=== PATIENT | female | born 1955 | race Caucasian/White ===

== ENCOUNTER 2017-03-31 09:57 | Observation (INO) | payer MEDICAID ==
[2017-03-31] MEDS ORDERED: HYDROmorphONE/DILAUDID 1 MG/ML INJ ONE (10:51)
--- NOTE | 2017-03-31 10:53 | EDPHY ---
General - History Smoking Status: Never smoked Narrative: CHIEF COMPLAINT: Low back pain, right hip pain HISTORY OF PRESENT ILLNESS: Patient complains of 18 days history of right-sided hip pain and low back pain. This started after running. It is severe, 10/10 pain. It is occasionally better in the morning when she wakes up. It worsens as soon she becomes ambulatory. The back pain radiates into the right anterior thigh but stops at the knee. The right hip pain is worse with ambulation and movement. No saddle anesthesia. No weakness of the lower extremities. No incontinence of bowel or bladder. No retention of bowel or bladder. She saw her primary care physician who ordered an MRI of the right hip. This was attempted on Wednesday, but her pain was so severe she could not tolerate laying flat on the bed. She now presents with worsening pain from this. No other associated complaints or modifying factors. REVIEW OF SYSTEMS: Ten systems reviewed and are negative unless otherwise noted in the HPI PCP: Dr. Yvonne Matthew SPECIALISTS: None PAST MEDICAL HISTORY: Depression, anxiety, dyslipidemia PAST SURGICAL HISTORY: No surgical intervention SOCIAL HISTORY: Nonsmoker. No heavy alcohol use. No drug use. FAMILY HISTORY: Noncontributory EXAMINATION General Appearance: Alert, no distress, lying in left lateral decubitus Head: normocephalic, atraumatic Eyes: Pupils equal and round, no conjunctival pallor or injection ENT, Mouth: Mucous membranes moist Neck: Normal inspection, supple, non-tender Respiratory: No retractions or distress Cardiovascular: Regular rate and rhythm. Symmetric DP pulses and PT pulses 2+. Back: Moderate tenderness of the lower lumbar spine, right of midline. No crepitus, step-off or deformity. There is tenderness of the right SI region. Neurological: GCS 15. A&O, nonfocal, antalgic but steady. Strength is 5/5 in the ankles and knees. Patellar reflexes symmetric. No footdrop. Light sensation is symmetric on the top of the feet in the bottom of the feet. Skin: Warm and dry, no rash. No petechiae or purpura Extremities: Tenderness of the right greater trochanter and hip. Range of motion is symmetric to the left but significantly painful. Psychiatric: Mood and affect normal DIFFERENTIAL DIAGNOSES: Including but not limited to lumbar radiculopathy, disc rupture, disc bulge, nerve root impingement, cord compression, hip impingement, hip fracture MDM: 10:50 a.m. Intractable low back and right hip pain of 18 days duration. Patient was unable to tolerate MRI Wednesday. I have ordered pain medication to be administered an MRI of the lumbar spine and right hip. She is neuro intact with excellent strength and no signs of acute cord compression or cauda equina. I status currently being obtained as this was originally order without and with contrast 12:20 p.m. Contacted by radiologist Dr. Marmolejo. MRI of the lumbar spine findings discussed. No acute cord compression. Findings discussed as documented. 1:05 p.m. Patient's back from MRI and I have re-evaluated at this time. The MRI interpretation is not yet available for the hip. She says the pain is improved but she still cannot lie flat and does not think she could walk at this time. Awaiting for the MRI of the hip, although I suspect her pain is radicular. I will consult Neurosurgery for the lumbar spine findings. 1:20 p.m. Case discussed with neurosurgeon Dr. Farah. He informs me that one of his colleagues will evaluate the patient in the emergency department. 1:30 p.m. Neurosurgery RACHELLE Sloan is in the department to evaluate the patient. She plans for interventional radiology injection after reviewing the MRI. 1:49 p.m. Case discussed with hospitalist Dr. Vazquez. He will admit the patient to his service for pain control. Patient remains neuro intact but with intractable pain. Neurosurgery is still evaluating and determining surgical intervention versus is an epidural injection. She is admitted in stable condition, neuro intact with intractable pain and no evidence of cauda equina 2:30 p.m. Informed by diamond merchant. [facility] has discussed with NSGY, and they have decided on interventional radiology for injection. No surgery planned at this time. SUPERVISION: Patient was independently examined, but I discussed the case with my secondary supervising physician Dr. Her ([facility]) Medical Decision Making: I did not see this patient while she was in the emergency department. However her care was discussed with the PA while the patient was in the department. I agree with treatment plan and management. I am a secondary supervising physician (Tank Her) - Objective Vital Signs: Initial Vital Signs Temperature (C) 36.9 C 03/31/17 10:00 Heart Rate 59 L 03/31/17 10:00 Respiratory Rate 18 01/17/18 10:00 Blood Pressure 147/91 H 03/31/17 10:00 O2 Sat (%) 95 03/31/17 10:00 O2 Delivery Mode Room Air Allergies/Adverse Reactions: No Known Allergies Allergy (Unverified 09/26/14 17:19) Home Medications: Medication Instructions Recorded Atorvastatin Calcium [Lipitor 20 20 mg PO DAILY 03/31/17 mg (*)] Escitalopram Oxalate [Lexapro 10 10 mg PO DAILY 03/31/17 MG] lamoTRIgine [LamICTAL 100 MG (*)] 250 mg PO DAILY 03/31/17 Acetaminophen [Tylenol 325mg (*)] 1,000 mg PO Q8 tab 04/01/17 Diazepam [Valium 5 MG (*)] 5 mg PO Q6HRS PRN #20 tab 04/01/17 Ibuprofen [Motrin (*)] 400 mg PO Q4HRS tab 04/01/17 oxyCODONE IR [Oxycodone Ir (*)] 5 - 10 mg PO Q3HRS PRN #30 tab 04/01/17 Laboratory Results: Laboratory Results 03/31/17 11:03 Medications Given: Discontinued Medications Acetaminophen (Tylenol) 1,000 mg PO Q8 DONELL Stop: 09/27/17 15:07 Last Admin: 04/01/17 04:37 Dose: 975 mg Acetaminophen (Tylenol) 1,000 mg PO Q8 DONELL Stop: 09/28/17 13:59 Last Admin: 04/01/17 13:55 Dose: 1,000 mg Atorvastatin Calcium (Lipitor) 20 mg PO DAILY DONELL Stop: 09/28/17 08:59 Last Admin: 04/01/17 11:00 Dose: Not Given Diazepam (Valium Injection) 5 mg IVP EDNOW ONE Stop: 03/31/17 11:26 Last Admin: 03/31/17 11:26 Dose: 5 mg Diazepam (Valium) 5 mg PO Q6HRS PRN PRN Reason: Anxiety, Able to Take PO Stop: 09/27/17 15:08 Last Admin: 04/01/17 04:36 Dose: 5 mg Escitalopram Oxalate (Lexapro) 10 mg PO DAILY DONELL Stop: 09/28/17 08:59 Last Admin: 04/01/17 11:01 Dose: Not Given Fentanyl (Sublimaze) 0 mcg IVP ONCALL PRN PRN Reason: Per provider during procedure Stop: 04/01/17 09:33 Last Admin: 04/01/17 08:51 Dose: 100 mcg Hydromorphone HCl (Dilaudid) 1 mg IVP EDNOW ONE Stop: 03/31/17 11:07 Last Admin: 03/31/17 11:08 Dose: 1 mg Sodium Chloride (Ns) 1,000 mls @ 30 mls/hr IV CONT DONELL Stop: 09/28/17 08:44 Last Admin: 04/01/17 08:51 Dose: 1,000 mls Ibuprofen (Motrin) 400 mg PO Q4HRS [facility] Stop: 09/27/17 17:59 Last Admin: 04/01/17 13:54 Dose: 400 mg Lamotrigine (Lamictal) 250 mg PO DAILY [facility] Stop: 09/28/17 08:59 Last Admin: 04/01/17 11:01 Dose: Not Given Midazolam HCl (Versed) 0 mg IVP ONCALL PRN PRN Reason: Per provider during procedure Stop: 04/01/17 09:33 Last Admin: 04/01/17 08:51 Dose: 2 mg Oxycodone HCl (Oxycodone Ir) 5 - 10 mg PO Q3HRS PRN PRN Reason: Pain, Severe Able to Take PO Stop: 04/10/17 15:07 Last Admin: 04/01/17 12:51 Dose: 10 mg Departure - Departure Disposition: [facility] Acute Clinical Impression: Intractable low back pain, Lumbar disc herniation with radiculopathy Condition: Good
[2017-03-31] MEDS ORDERED: HYDROmorphONE/DILAUDID 1 MG/ML INJ IVP ONE (11:06)
[2017-03-31 11:13] LABS: PLATELET COUNT 187 10^3/uL (150-400)
[2017-03-31] MEDS ORDERED: DIAZEPAM 10 MG/2 ML SYR ONE (11:23)
[2017-03-31] MEDS ORDERED: DIAZEPAM 10 MG/2 ML SYR IVP ONE (11:25)
[2017-03-31] MEDS ORDERED: ONDANSETRON 4 MG/2 ML VIAL IVP PRN (15:08)
[2017-03-31] MEDS ORDERED: HYDROmorphONE/DILAUDID 1 MG/ML INJ IVP PRN (15:08)
[2017-03-31] MEDS ORDERED: ACETAMINOPHEN 325 MG TAB PO PRN (15:08)
[2017-03-31] MEDS ORDERED: ONDANSETRON DISINTEGRATING 4 MG TAB PO PRN (15:08)
--- NOTE | 2017-03-31 15:32 | GHP ---
[f rep st] HISTORY AND PHYSICAL DATE OF ADMISSION: 03/31/2017 Ms Aranda is a pleasant 61-year-old female with a history of depression who strained her low back artemio rtly after the new year shoveling snow. She describes right hip pain and low back pain. She thought she might have injured it jogging. Describes it as 10/10. It worsens as she becomes ambulatory thr ough the day. It radiates to the right anterior thigh, stops at the knee. There has been no inconti nence. No saddle anesthesia. No urinary retention. PCP ordered an MRI of the right hip, but she co uld not tolerate it. She reports to the emergency department today. No fever, chills. No nausea, v omiting, diarrhea. No IV drug use. REVIEW OF SYSTEMS: Complete 10-point review of systems conducted and negative except as noted in the HPI. PAST MEDICAL HISTORY: Depression, anxiety, hyperlipidemia. SOCIAL HISTORY: No tobacco. Denies heavy alcohol. No drugs. Works in social media. FAMILY HISTORY: Is reviewed and unremarkable. ALLERGIES: No known drug allergies. MEDICATIONS: Lamotrigine, escitalopram, atorvastatin. PHYSICAL EXAMINATION: PRESENTING VITALS: Temp 36.9, blood pressure 147/91, pulse 59, breathing 18 t imes a minute, 95% on room air. GENERAL: No acute distress. HEENT: Sclerae anicteric. Oropharynx clear. Mucous membranes moist. NECK: Supple. No lymphadenopathy or JVD. LUNGS: Clear to auscul tation bilaterally. HEART: S1, S2. ABDOMEN: Soft, nontender, nondistended. LOWER EXTREMITIES: N o edema. Calves nontender. SKIN: Without rash. NEUROLOGIC: Exam is grossly nonfocal. LABORATORY AND X-RAY DATA: Sodium 144, potassium 4.0, chloride 110, there is no bicarb. BUN 11, cre atinine 0.8. CBC is normal. MRI of the lumbar spine shows right posterior lateral disc herniation at the L2-L3 level likely affec ting the L3 nerve root as it courses toward the neuro foramen as well as severe left and moderate rig ht neuroforaminal stenosis at L5-S1. She had a lower extremity MRI that showed mild degenerative early changes of the right hip as well as tendinopathy of the gluteus tendon, tendinopathy of the right common hamstring. I have discussed the case with Galo Barksdale PA in the emergency department. ASSESSMENT/PLAN: A 61-year-old female presents with newly discovered lumbar sacral disc disease with neuroforaminal impingement. 1. Spine disease. The patient has been seen by Neurosurgery, who apparently recommended IR steroid injection. The patient probably warrants narcotic pain medicines, muscle relaxant, scheduled ibuprof en and scheduled Tylenol. I will have PT and OT see her. 2. Depression. Continue her Lexapro. 3. Anxiety. Continue her Lamictal. 4. Prophylaxis. Pharmacologic prophylaxis indicated. 5. Disposition. Observation status. /[id number]/MODL
--- NOTE | 2017-03-31 15:32 | GCON ---
[f rep st] CONSULTATION CHIEF COMPLAINT: Low back pain and right buttock pain. HISTORY OF PRESENT ILLNESS: This patient is a 61-year-old female who began experiencing some lower back pain in early-March following shoveling of some snow. The patient states that the pain has been increasing over the last couple weeks and became unbearable today and brought her to the emergency room. The patient describes her symptoms as being in her lower back extending into the right upper buttock and in the right hip region. She denies any weakness, she denies any saddle anesthesia and she denies any difficulty with walking other than it being painful to stand straight up. The patient has been taking 800 mg of ibuprofen that only minimally decreases her pain for approximately 3 hours at a time. The patient feels better when she is bending over. REVIEW OF SYSTEMS: A 10-point review of systems was reviewed and negative aside from what was mentioned in the HPI. MEDICAL HISTORY: 1. Depression. 2. Anxiety. 3. Dyslipidemia. SURGICAL HISTORY: 1. Tonsillectomy. 2. Breast augmentation. MEDICATIONS: 1. Atorvastatin. 2. Lexapro. 3. Lamictal. ALLERGIES: No known drug allergies. SOCIAL HISTORY: The patient drinks alcohol approximately 2 to 3 times per week. She does not use any nicotine products. She does not use illicit drugs. She occasionally uses marijuana. FAMILY HISTORY: The patient's mother and father did not have any spinal issues. Mother from pancreatic cancer. Dad is currently living with dementia. LABORATORY: White blood cell count IS 4.61, hematocrit 44.7, hemoglobin 15.5, and platelets 187. Sodium 144, potassium 4.0, creatinine 0.8, glucose 96. DIAGNOSTIC IMAGING: MRI of the lumbar spine performed without contrast on 03/31, demonstrates a right posterolateral disk herniation at L2-3 level, which is likely affecting the L3 nerve root as it courses toward the neural foramen. Severe left and moderate to severe right neural foraminal stenosis at L5-S1 due to diffuse broad-based disk bulge and facet arthropathy. PHYSICAL EXAMINATION: VITAL SIGNS: Blood pressure is 130/74, heart rate 52, respiratory rate 18, oxygen saturation 92% on room air, temperature is 36.6 degrees Celsius. HEENT: Head is normocephalic and atraumatic. Pupils are equal, round, and reactive to light. EOMI is intact. Full visual garay by confrontation. RESPIRATORY/CARDIAC: Deferred. ABDOMEN: Deferred. GENITOURINARY/RECTAL: Deferred. NEUROLOGIC: The patient is awake and alert, and oriented to name, place, date, time, and situation. Memory is intact to immediate past and current events. Speech, no aphasia or dysphonia. Cranial nerves 2 through 12 are grossly intact. Motor, patient has 5/5 strength in all muscle groups in the bilateral lower and upper extremities to include deltoids, biceps, triceps, brachioradialis, wrist flexion, extensors, jewelry racker, intrinsic fingers, iliopsoas, quadriceps, hamstrings, plantar flexion and dorsiflexion, EHL testing. Sensation is grossly intact to light touch throughout all dermatomal distributions in bilateral lower extremities. Negative straight leg raise bilaterally. Negative YORDY test bilaterally. Reflexes, biceps, triceps, brachioradialis, knee jerk and ankle jerk are 2+ out of 4. Toes are downgoing bilaterally. Manuel sign is positive on the left, negative on the right. Babinski's is negative and there is no evidence of clonus. ASSESSMENT/PLAN: The patient is a 61-year-old female who has been experiencing increasing lower back and right buttock pain since earlier this month. MRI lumbar spine demonstrates a large right posterolateral disk herniation at L2-3, which is likely the culprit of her pain. The patient also has severe foraminal stenosis which is worse on the left at L5-S1 which is less likely to be her current pain generator due to the distribution of her pain. The patient does not have any weakness and does not have any peroneal numbness. The patient will be admitted to Medicine for pain management and we would like her to try a right-sided L2-3 epidural steroid injection with Interventional Radiology. If the epidural injection is unsuccessful, we may need to consider surgical resection of the L2-[address] Marin. Plan of care has been discussed with the patient and she agrees with the plan. We are hopeful that she gains some relief of her pain with nonsurgical means. This patient was seen and examined by myself and Dr. Miguel Marin in the emergency room on 03/31/17, at 1400. /[id number]/MODL MTDD
[2017-03-31] MEDS: DIAZEPAM 5 MG TAB PO PRN (15:49)
[2017-03-31] MEDS: oxyCODONE IR 5 MG TAB PO PRN (15:50)
[2017-03-31] MEDS: IBUPROFEN 200 MG TAB PO SCH ×2 (19:08→21:35)
[2017-03-31] MEDS: ACETAMINOPHEN 325 MG TAB PO SCH (21:36)
[2017-04-01] MEDS: oxyCODONE IR 5 MG TAB PO PRN ×3 (02:14→12:51)
[2017-04-01] MEDS: IBUPROFEN 200 MG TAB PO SCH ×4 (02:14→13:54)
[2017-04-01] MEDS: DIAZEPAM 5 MG TAB PO PRN (04:36)
[2017-04-01] MEDS: ACETAMINOPHEN 325 MG TAB PO SCH (04:37)
--- NOTE | 2017-04-01 08:02 | NEUSURGPN ---
Assessment/Plan: Assessment: 61 yr old with right L2-3 disc protrusion and bilateral stenosis at L5-S1 L>R, low back pain right buttock/hip pain Plan: -Scheduled for right L2-3 MISHA with IR this am -Will continue to follow MISHA results -If not effective, may consider surgery with Dr Marin for L2-3 disc -Please call neurosurgery with any questions/concerns Patient discussed with Dr Marin Subjective: Patient relatively comfortable Objective: AxO x3 PERRLA 5/5 BLE Sensation intact light touch BLE Neuro Check Frequency: per routine Urinary Catheter in Place: No - Physician Discussed Patient with Dr.: Marin Neurosurgery Physical Exam - Vitals, I&O, Labs I and O 03/31/17 04/01/17 04/02/17 05:59 05:59 05:59 Weight 88.7 kg Other: Intake Quantity Yes Sufficient Vital Signs Temp Pulse Resp BP Pulse Ox 36.9 C 60 16 135/79 H 94 04/01/17 07:29 04/01/17 07:29 04/01/17 07:29 04/01/17 07:29 04/01/17 07:29 ICD10 Worksheet Patient Problems: Problems Problem Status Onset Intractable low back pain Acute Lumbar disc herniation with radiculopathy Acute
[2017-04-01] MEDS ORDERED: TRIAMCINOLONE ACETONIDE 200 MG/5 ML MDV IM ONE (08:17)
[2017-04-01] MEDS ORDERED: IOPAMIDOL (ISOVUE-M 300) 15 ML VIAL ONE (08:17)
[2017-04-01] MEDS ORDERED: MIDAZOLAM 2 MG/2 ML VIAL ONE (08:29)
[2017-04-01] MEDS ORDERED: fentaNYL 100 MCG/2 ML INJ ONE (08:29)
[2017-04-01] MEDS ORDERED: MIDAZOLAM 2 MG/2 ML VIAL IVP PRN (08:32)
[2017-04-01] MEDS ORDERED: MEPERIDINE 25 MG/ML SYR IVP PRN (08:32)
[2017-04-01] MEDS ORDERED: PROTAMINE SULFATE 50 MG/5 ML VIAL IVP PRN (08:32)
[2017-04-01] MEDS ORDERED: FLUMAZENIL 0.5 MG/5 ML MDV IVP PRN (08:32)
[2017-04-01] MEDS ORDERED: fentaNYL 100 MCG/2 ML INJ IVP PRN (08:32)
[2017-04-01] MEDS ORDERED: NALOXONE HCL 0.4 MG/ML INJ IVP PRN (08:32)
--- NOTE | 2017-04-01 08:37 | PDPROPOC ---
Sedation Plan of Care Sedation Plan of Care: vital signs stable, mental status noted, patient educated of risks, benefits, alternatives, patient can tolerate sedation ASA Classification: ASA 1 Planned drugs: fentanyl, midazolam Mallampati Score: Class 4 Mallampati Reference Image: Patient passed 3-3-2 rule?: Yes
[2017-04-01] MEDS ORDERED: NS 1,000 ML IV SCH (08:45)
[2017-04-01] MEDS ORDERED: ONDANSETRON 4 MG/2 ML VIAL IVP PRN (08:56)
--- NOTE | 2017-04-01 08:56 | PDRADPN ---
Radiology Procedure Note Date of Procedure: 04/01/17 Radiologist: Lamont Mckeon Anesthesia: IV Sedation Pre-op Diagnosis: L2-3 HNP Post-op Diagnosis: same Indication: Severe pain in back, right buttock, and righ groin Procedure: Lumbar MISHA L2-3 Finding(s): 2 ml kenalog (80mg) and 3 ml PF 1% xylocaine injected. Inf/Abcess present in the surg proc area at time of surgery?: No EBL: Minimal
[2017-04-01] MEDS ORDERED: ENOXAPARIN 40 MG/0.4 ML SYR SC SCH (09:00)
[2017-04-01] MEDS ORDERED: ESCITALOPRAM OXALATE 10 MG TAB PO SCH (09:00)
[2017-04-01] MEDS ORDERED: lamoTRIgine 100 MG TAB PO SCH (09:00)
[2017-04-01] MEDS ORDERED: ATORVASTATIN CALCIUM 20 MG TAB PO SCH (09:00)
[2017-04-01 13:59] VITALS: O2SAT 92
[2017-04-01] MEDS ORDERED: ACETAMINOPHEN 500 MG TAB PO SCH ×2 (14:00)
[2017-04-01 14:03] VITALS: BP 154/98; PULSE 59; RESP 16; TEMP 97.2
--- NOTE | 2017-04-01 15:22 | ASDISCHSUM ---
Discharge Information Plan Status:Home with No Needs Medically Cleared to Leave: Discharge Date:04/01/2017 02:06 PM CM D/C Disposition:Home, Routine, Self-Care ADT D/C Disposition:Home, Routine, Self-Care Projected Discharge Date:04/01/2017 02:06 PM Transportation at D/C: Discharge Delay Reason: Follow-Up Date:04/01/2017 02:06 PM Discharge Slot: Final Diagnosis: Placement Information Patient Contact Information Contact Name:ALLY Relationship:Friend Address: Work Phone: City: [facility] Phone: State/Zip Code: Email: Financial Information Financial Class: Primary Plan Desc:[employer] CANAL [employer] Primary Plan Number:[id number] Secondary Plan Desc: Secondary Plan Number: Assessment Information Intervention Information
--- NOTE | 2017-04-01 15:42 | GDS ---
[f rep st] DISCHARGE SUMMARY DISCHARGE DIAGNOSES: 1. Degenerative disc disease. 2. Back pain. 3. History of depression. 4. History of anxiety. CONSULTATION: Dr. Mckeon of Radiology. STUDIES AND PROCEDURES: 1. MRI of lower extremity as well as lumbar spine. 2. Injection of the lumbar spine. PHYSICAL EXAM: GENERAL: The patient is alert. VITAL SIGNS: Afebrile at 36.2, pulse 59, respirator y rate 16, blood pressure is 159/98, she is saturating 92% on room air. I have seen and evaluated th e patient on the day of discharge. HOSPITAL COURSE: Ms. Aranda is a 61-year-old female who presented to the emergency room with complai nts of low back pain. She was evaluated and received a consultation from Neurosurgery. After MRI co mpletion it was recommended the patient have an interventional radiology steroid injection. This was performed by Dr. Mckeon. She has responded well to this as well as narcotic pain medication and mus jojo relaxers. She is able to be discharged home and follow up in the outpatient setting with Neurosu rgwilberto as needed. Her home medications have been continued. There are no pending studies. DISCHARGE MEDICATIONS: I provided her a prescription for Valium as well as oxycodone IR. FOLLOWUP: Will be with her primary care provider as well as Neurosurgery. /[id number]/MODL
== END 2017-04-01 14:06 | disposition home or self-care (01) ==
LOC: F3E 15:38
PROVIDERS: ADMIT Internal Medicine; ATTEND Internal Medicine
DX: M51.16 Intervertebral disc disorders with radiculopathy, lumbar region (principal); M51.17 Intervertebral disc disorders with radiculopathy, lumbosacral region; M51.36 Other intervertebral disc degeneration, lumbar region; M48.07 Spinal stenosis, lumbosacral region; M76.01 Gluteal tendinitis, right hip; M54.5 Low back pain; F32.9 Major depressive disorder, single episode, unspecified; F41.9 Anxiety disorder, unspecified; E78.5 Hyperlipidemia, unspecified
CPT/HCPCS: 62322; 72148; 73721; 97161; 97165; 99152; G0378; 82947-QW; 96374; J1170; J2250; J3010; J3301; Q9967

== ENCOUNTER 2017-06-16 08:46 | Emergency (ER) | payer MEDICAID ==
--- NOTE | 2017-06-16 09:36 | EDPHY ---
H & P Stated Complaint: back pain/hx herniated disc Time Seen by Provider: 06/16/17 09:14 HPI/ROS: CHIEF COMPLAINT: Acute on chronic low back pain HISTORY OF PRESENT ILLNESS: 61-year-old female history of chronic low back pain , chronic right lower extremity lumbar radiculopathy, complaining of acute exacerbation of symptoms for the past 3 days after she was lifting and pushing a heavy object. She has taken 400 mg ibuprofen and 650 mg of Tylenol with no relief of symptoms. This feels similar to her prior exacerbation episodes. No direct trauma or fall. She denies: Incontinence or retention, saddle anesthesia, foot drop, weakness. She has prior history of epidural injection. REVIEW OF SYSTEMS: A ten point review of systems was performed and is negative with the exception of the items mentioned in the HPI PAST MEDICAL & SURGICAL HISTORY: Chronic low back pain. Multilevel degenerative disc disease. Depression. Anxiety. Tonsillectomy. Breast augmentation. SOCIAL HISTORY: Nontobacco smoker. PHYSICAL EXAM (Prior to examination, patient consented to physical exam, hands were washed and my usual and customary physical exam procedures followed) 1) GENERAL: Well-developed, well-nourished, alert and oriented. Appears uncomfortable. 2) HEAD: Normocephalic, atraumatic 3) HEENT: Pupils equal, round, reactive to light bilaterally. Sclera anicteric. Nasopharynx, oropharynx, clear, no lesions. 4) NECK: Full range of motion, no meningeal signs. 5) LUNGS: Clear auscultation bilaterally, no wheezes, no rhonchi, no retractions. 6) HEART: Regular rate and rhythm, no murmur, no heave, no gallop. 7) ABDOMEN: No guarding, no rebound, no focal tenderness, negative McBurney's, negative Kaye's, negative Rovsing's, negative peritoneal sign, 8) MUSCULOSKELETAL: Moving all extremities, no focal areas of tenderness, no obvious trauma. No peripheral edema or discoloration. 9) BACK: tender to palpation right paraspinous muscle. Positive straight leg lift test on the right approximately 20 degrees. No CVA tenderness, no midline vertebral tenderness, no fluctuance, no step-off, no obvious trauma, no visual or palpable abnormality. Patella, Achilles reflexes intact to bilateral strength 5/5 10) SKIN: No rash, no petechiae. 11) NEURO: Awake, alert, and oriented to person, place and time. Answers questions appropriately. There were no obvious focal neurologic abnormalities. No cerebellar dysfunction. Normal steady gait. Upper and lower extremities bilaterally with strength 5 / 5, reflexes 2+.. DIFFERENTIAL DIAGNOSIS: In no particular order, including but not limited to, fracture, sprain/strain, cauda equina, spinal infectious etiology. MEDICAL DECISION MAKING 9:34 a.m.: I had a lengthy discussion with the patient after evaluating her. At this time she appears uncomfortable and has difficulty finding a comfortable position. She informs me that she has a trip to [place] tomorrow to see her children and she wants to make sure she keeps this trip. She also informs me that she has quite a few things to do today and does not want a medicine that well altered her judgment create somnolence. I have offered her multiple options including, but not limited to, IV analgesia in the ER, oral analgesia in the ER, admission to hospital. She states that she does not want any opiates from the emergency department. She does accept a lidocaine patch and does accept a Medrol Dosepak otherwise informs me that she has sufficient supply of opiates at home which he has not yet consumed. Informed that she is more than welcome to return to the emergency department any point for re- evaluation. Expressed to her my concern over her taking a multi our transatlantic flight in her current state of discomfort however Lower index of suspicion for cauda equina, epidural abscess, epidural hematoma, lumbar myositis , diskitis, as the patient is neurologically intact in the lower extremities, has patella and Achilles reflexes intact and equal bilaterally, has no neurologic deficits, no incontinence, no retention, no midline pain, no fluctuance, afebrile, no flulike symptoms. Pain may be secondary to muscular strain, may be secondary to discogenic etiology. At this point I do not identify definitive indication for emergent MRI, however patient may necessitate this on an outpatient basis. Patient given acute back pain precautions. Patient verbalizes understanding of discharge instructions. I believe them be competent decision-makers. All questions and concerns have been addressed by me. Ample opportunity for questions have been provided . The patient understands that this diagnosis is provisional and can never be 100 % accurate. Usual and customary warnings were given concerning the clinical impression and all the patient's questions were answered. The patient was instructed to return to the emergency department should her symptoms worsen or return, or develop any new symptoms, otherwise to followup as directed in discharge instructions. - Personal History Current Tetanus/Diphtheria Vaccine: Yes - Medical/Surgical History Hx Asthma: No Hx Chronic Respiratory Disease: No Hx Diabetes: No Hx Cardiac Disease: No Hx Renal Disease: No Hx Cirrhosis: No Hx Alcoholism: No Hx HIV/AIDS: No Hx Splenectomy or Spleen Trauma: No Other PMH: PMH: anxiety, sciatica, high cholestrol, bipolar, depression - Social History Smoking Status: Never smoked Constitutional: Initial Vital Signs Temperature (C) 36.6 C 06/16/17 08:55 Heart Rate 63 06/16/17 08:55 Respiratory Rate 18 06/16/17 08:55 Blood Pressure 178/81 H 06/16/17 08:55 O2 Sat (%) 94 06/16/17 08:55 O2 Delivery Mode Room Air Allergies/Adverse Reactions: No Known Allergies Allergy (Verified 06/16/17 08:54) Home Medications: Medication Instructions Recorded Atorvastatin Calcium [Lipitor 20 20 mg PO DAILY 03/31/17 mg (*)] Escitalopram Oxalate [Lexapro 10 10 mg PO DAILY 03/31/17 MG] lamoTRIgine [LamICTAL 100 MG (*)] 250 mg PO DAILY 03/31/17 Acetaminophen [Tylenol 325mg (*)] 1,000 mg PO Q8 tab 04/01/17 Diazepam [Valium 5 MG (*)] 5 mg PO Q6HRS PRN #20 tab 04/01/17 Ibuprofen [Motrin (*)] 400 mg PO Q4HRS tab 04/01/17 oxyCODONE IR [Oxycodone Ir (*)] 5 - 10 mg PO Q3HRS PRN #30 tab 04/01/17 Ibuprofen [Motrin (*)] 800 mg PO Q6 #15 tab 06/16/17 methylPREDNISolone [Medrol Dose 4 mg PO DAILY #1 ea 06/16/17 Cheng] Departure - Departure Disposition: Home, Routine, Self-Care Clinical Impression: Intractable low back pain Condition: Good Instructions: Acute Low Back Pain (ED), Lumbar Radiculopathy (ED) Additional Instructions: Seek medical attention if you develop new or worsening pain, if you develop bladder or bowel dysfunction, numbness around your perineum, foot drop, or any other symptoms that concern you. Referrals: Toño Marin MD [Medical Doctor] - 5-7 days, call for appt. Prescriptions: Ibuprofen [Motrin (*)] 800 mg PO Q6 #15 tab methylPREDNISolone [Medrol Dose Cheng] 4 mg PO DAILY #1 ea
[2017-06-16] MEDS ORDERED: LIDOCAINE 4%/MENTHOL 1% PATCH TD ONE (09:37)
[2017-06-16 09:55] VITALS: BP 142/88; PULSE 78; RESP 16; TEMP 98.6; O2SAT 96
[2017-06-16] MEDS ORDERED: PATCH REMOVAL 1 EA PATCH TD SCH (21:00)
== END 2017-06-16 09:52 | disposition home or self-care (01) ==
DX: M54.5 Low back pain (principal)